=== PATIENT | female | born 1940 | race Caucasian/White ===

== ENCOUNTER 2023-10-12 16:40 | Emergency (ER) | payer MEDICARE, OTHER, SELFPAY ==
[2023-10-12 16:51] VITALS: BP 138/59
[2023-10-12 16:52] LABS: Glucose - Point of Care 113 mg/dl (70-99)
[2023-10-12 17:07] VITALS: BMI 24.7
[2023-10-12 17:25] LABS: % Basophils 0.3 % (0-2); % Immature Granulocytes 0.3 % (0-0.5); % Lymphocytes 46.9 % (20.5-51.1); % Monocytes 7.1 % (1.7-9.3); % Neutrophils 45.4 % (42.2-75.2); Absolute Lymphocytes 5.1 10^3/uL (1.2-3.4); Absolute Monocytes 0.8 10^3/uL (0.1-0.6); Absolute Neutrophils 4.9 10^3/uL (1.4-6.5); Hematocrit 36.2 % (37.0-47.0); Hemoglobin 12.1 g/dL (12.0-16.0); Mean Corp Hgb Conc. 33.4 g/dL (33.0-37.0); Mean Corpuscular Hgb 27.6 pg (27.0-31.0); Mean Corpuscular Volume 82.6 fL (81.0-99.0); Mean Platelet Volume 11.5 fL (7.4-10.4); Nucleated Red Blood Cells % 0.2 %; Platelet Count 221 10^3/uL (130-400); Red Blood Cell Count 4.38 10^6/uL (4.20-5.40); Red Cell Dist. Width 14.6 % (11.5-14.5); White Blood Cell Count 10.8 10^3/uL (4.8-10.8)
[2023-10-12 17:49] LABS: ALT (SGPT) 15 U/L (0-35); AST (SGOT) 28 U/L (14-36); Albumin 4.2 g/dl (3.5-5.0); Alkaline Phosphatase 72 U/L (38-126); Blood Urea Nitrogen 24 mg/dl (7-17); Carbon Dioxide 29 mmol/L (22-30); Chloride 100 mmol/L (98-107); Estimated Creatinine Clearance 56 ml/min; Glucose 142 mg/dl (70-99); Potassium 4.1 mmol/L (3.5-5.1); Sodium 132 mmol/L (135-145); Total Bilirubin 0.3 mg/dl (0.2-1.3); Total Protein 6.9 g/dl (6.3-8.2); eGFR > 60.00
[2023-10-12 18:00] VITALS: BP 142/53
[2023-10-12] MEDS: NSS 500 IV (18:17)
--- NOTE | 2023-10-12 19:14 | ED.GENMED ---
History of Present Illness
General
Chief Complaint: Weakness
Source: patient
Exam Limitations: none
Time Seen by Provider: 10/12/23 17:26
Nursing documentation reviewed up to this point in time: agreed with
Travel History
Have you had any contact with someone who has COVID-19?: No
Do you have any symptoms of coronavirus? Fever > 100 degrees, chills, cough, shortness of breath, sore throat, loss of taste or smell, muscle aches, or headache?: No
History of Present Illness
History of Present Illness:
Patient with recent eyelid lift procedure, to improve her vision, presents to ED secondary to sudden onset of blurred vision along with difficulty ambulating starting this afternoon. Denies headache. Denies loss of sensation or weakness. Denies
difficulty with speech. Denies difficulty with swallowing. Denies previous history of similar symptoms. Patient takes aspirin 81 mg daily. Denies recent illness. Denies recent change in medications or diet.
Past History
Past History
ED Past Medical History: GERD, HTN, Hypercholesterolemia, IDDM, Hypothyroidism and Other
ED Past Surgical History: Cholecystectomy, Gynecological (Partial hysterectomy), Orthopedic (R TKR 11/2016) and Other (strabismus surgery)
Social History
Tobacco: Former smoker
Alcohol: Occasional
Drug: None
Personal:
Living: with family
Employment: Retired
Family History
Family History: Other (Reviewed and non-contributory)
Review of Systems
Review of Systems
Allergies reviewed?: Yes
All Other Systems: ROS reviewed and negative except as documented in HPI and ROS
Constitutional: Reports no symptoms
EENT: Reports no symptoms
Respiratory: Reports no symptoms
Cardiac: Reports no symptoms
ABD/GI: Reports no symptoms
: Reports no symptoms
Musculoskeletal: Reports no symptoms
Skin: Reports no symptoms
Neurological: Reports other (Blurred vision and difficulty walking)
Phy Exam
Physical Exam
Physical Exam:
Physical Exam
General: mild distress, not acutely ill. afebrile
Head: nc/at. eomi
Neck: supple. normal range of motion.
Heart: s1/s2 regular rate and rhythm, no murmur. equal radial pulses.
Lungs: no acute respiratory distress. clear bilaterally
Abdomen: normal bowel sounds. not tender.
Neuro: alert and oriented. no focal neurological deficits. normal speech. unsteady gait noted.
Skin: no rash
Psychiatric: well kept. interactive and cooperative
Extremities: no edema. no calf tenderness.
Course
Orders/Labs/Results
Orders:
Orders
10/12/23 17:17
CMP [Comprehensive Metabolic Panel] Urgent
Complete Blood Count/With Diff Urgent
10/12/23 18:08
CT Head W/o Iv Contrast Urgent
Comment:
Reason For Exam: double vision
0.9% Sodium Chloride 500 ml [Nss] 500 ml IV BOLUS
10/12/23 19:18
Electrocardiogram (*1) Urgent
Reason for Study: TIA/Stroke
EKG- Treatment ONCE
Abnormal Lab Results
10/12/23 10/12/23
16:51 17:17
Hct 36.2 L %
(37.0-47.0)
RDW 14.6 H %
(11.5-14.5)
MPV 11.5 H fL
(7.4-10.4)
Absolute Lymphs (auto) 5.1 H 10^3/uL
(1.2-3.4)
Absolute Monos (auto) 0.8 H 10^3/uL
(0.1-0.6)
Sodium 132 L mmol/L
(135-145)
BUN 24 H mg/dl
(7-17)
Glucose 142 H mg/dl
(70-99)
POC Glucose 113 H mg/dl
(70-99)
10/12/23 17:17
10/12/23 17:17
Vital Signs
Initial and Last Documented VS:
Initial Vital Signs
Temp Pulse Resp BP Pulse Ox
98.1 F 63 20 138/59 100
10/12/23 16:51 10/12/23 16:51 10/12/23 16:51 10/12/23 16:51 10/12/23 16:51
Last Documented Vital Signs
Temp Pulse Resp BP Pulse Ox
98.1 F 67 15 134/51 94
10/12/23 16:51 10/12/23 20:13 10/12/23 20:13 10/12/23 20:13 10/12/23 20:13
MDM/Problems Addressed
MDM/Problems Addressed:
CT head: no acute findings.
Pt reports near resolution of symptoms after iv hydration. In addition, patient is able to ambulate with steady gait afterwards.
History and exam concerning for possible TIA versus dehydration triggering neurological symptoms. Discussed treatment options, including admission for further workup. However, patient feels comfortable going home at this time. Patient will
follow-up with neurology and her anthropology and archeology instructor for further evaluation and treatment. Advised to return to ED with recurrent or worsening symptoms. Patient expresses understanding at time of discharge, to the care of her spouse.
*Critical Care Note
Total Time (30-74mins, 75-104mins- exclusive of procedures): Not Applicable
ED Attending Note
-
Portions of this chart may have been created with voice recognition software.� Occasional wrong word or��sound alike� substitutions may have occurred due to the inherent limitations of voice recognition software.
Discharge Plan
Departure
Patient Disposition: Home (Routine Discharge)
Date of Disposition: 10/12/23
Time of Disposition: 20:05
Patient with high blood pressure during this ER visit?: Yes
Condition: Good
Discharge Problem:
Blurred vision, Dehydration
Instructions: Dehydration, Adult (DC)
Prescriptions:
No Action
insulin aspart U-100 [Novolog U-100 Insulin aspart] 1,000 UNITS/10 ML solution
4 units SC AC
Patient Comments:
patient reports taking Novolog one unit 12/16/16 at 6 AM
cetirizine 10 MG tablet
10 mg PO DAILYPRN PRN (Reason: allergeis) Qty: 0
alum-mag hydroxide-simeth [Mag-Al Plus] 30 ML suspension
30 ml PO Q4HPRN PRN (Reason: INDIGESTION) Qty: 0 0RF
lisinopril 20 MG tablet
20 mg PO DAILY
levothyroxine 88 MCG tablet
88 mcg PO DAILY
famotidine 20 MG tablet
20 mg PO HSPRN PRN (Reason: indegestion)
acetaminophen 325 MG tablet
650 mg PO Q4HPRN PRN (Reason: mild pain/HILL/temp> 100.4F) Qty: 0 0RF
carvedilol 12.5 MG tablet
12.5 mg PO BID
hydralazine 25 MG tablet
25 mg PO BID
aspirin 81 MG tablet,chewable
81 mg PO DAILY
insulin glargine [Lantus Solostar U-100 Insulin] 300 UNITS/3 ML insulin pen
10 units SC DAILY AT 0700
ondansetron 4 mg tablet,disintegrating
4 mg PO TIDPRN PRN (Reason: nausea/vomiting) Qty: 10 0RF
Referrals:
Carlos Rod MD [Active] -
Griselda Chaparro MD [Family Provider] -
Activity Restrictions/Additional Instructions:
As discussed, please follow-up with your primary care physician and/or referred neurologist, as well as anthropology and archeology instructor for further evaluation treatment. Please consider return to ED with recurrent blurred vision or any other neurological symptoms.
Interventions
Interventions:
*General Assessment Last Done: 10/12/23 17:10
*ED COVID-19 Vaccine History Last Done: 10/12/23 17:10
*Nursing Disposition Last Done: 10/12/23 20:18
Discharge Date and Time
Discharge Date/Time: 10/12/23 20:20
[2023-10-12 20:13] VITALS: BP 134/51
== END 2023-10-12 20:20 | disposition home or self-care (01) ==
LOC: EMR 16:40
PROVIDERS: EMERGENCY PHYSICIAN Emergency Medicine; FAMILY PHYSICIAN Family Medicine
DX: H53.8 Other visual disturbances (principal); E86.0 Dehydration; K21.9 Gastro-esophageal reflux disease without esophagitis; I10 Essential (primary) hypertension; E78.00 Pure hypercholesterolemia, unspecified; E11.9 Type 2 diabetes mellitus without complications; E03.9 Hypothyroidism, unspecified; Z79.82 Long term (current) use of aspirin; Z87.891 Personal history of nicotine dependence; Z90.49 Acquired absence of other specified parts of digestive tract
CPT/HCPCS: 99284; 70450; 80053; 82962; 85025

== ENCOUNTER → 2023-11-04 09:47 | Outpatient (REF) | payer MEDICARE, OTHER, SELFPAY | LOC: RAD 09:47 | PROVIDERS: ATTENDING PHYSICIAN Family Medicine | DX: R10.30 Lower abdominal pain, unspecified (principal) | CPT/HCPCS: 74177; Q9967 ==

== ENCOUNTER → 2023-11-30 09:05 | Outpatient (REF) | payer MEDICARE, OTHER, SELFPAY | LOC: RAD 09:05 | PROVIDERS: ATTENDING PHYSICIAN Internal Medicine Rheumatology; FAMILY PHYSICIAN Family Medicine | DX: M81.0 Age-related osteoporosis without current pathological fracture (principal); Z13.820 Encounter for screening for osteoporosis | CPT/HCPCS: 77080 ==

== ENCOUNTER → 2024-04-03 10:56 | Outpatient (REF) | payer MEDICARE, OTHER, SELFPAY | LOC: RAD 10:56 | PROVIDERS: ATTENDING PHYSICIAN Internal Medicine Critical Care Medicine; FAMILY PHYSICIAN Family Medicine | DX: R06.02 Shortness of breath (principal) | CPT/HCPCS: 71046 ==

== ENCOUNTER → 2024-07-12 13:51 | Outpatient (REF) | payer MEDICARE, OTHER, SELFPAY | LOC: RAD 13:51 | PROVIDERS: ATTENDING PHYSICIAN Family Medicine | DX: R05.8 Other specified cough (principal) | CPT/HCPCS: 71046 ==

== ENCOUNTER 2024-11-17 09:30 | Emergency (ER) | payer MEDICARE, OTHER, SELFPAY ==
[2024-11-17 09:37] VITALS: BP 145/51
--- NOTE | 2024-11-17 11:49 | ED.GENMED ---
History of Present Illness
General
Chief Complaint: Fall
Time Seen by Provider: 11/17/24 10:16
History of Present Illness
History of Present Illness:
84-year-old female presents the emergency department for evaluation after a fall 3 days ago, she lost her balance while applying lotion to her legs in the bathroom and fell back landing on her head, right shoulder, and right hip. She has been able
to ambulate since that time. Reporting mild headache and neck pain, right posterior chest wall pain, and right hip/pelvic pain
Past History
Past History
ED Past Medical History: GERD, HTN, Hypercholesterolemia, IDDM, Hypothyroidism and Other
ED Past Surgical History: Cholecystectomy, Gynecological (Partial hysterectomy), Orthopedic (R TKR 11/2016) and Other (strabismus surgery)
Social History
Tobacco: Former smoker
Alcohol: Occasional
Drug: None
Personal:
Living: with family
Employment: Retired
Family History
Family History: Other (Reviewed and non-contributory)
Review of Systems
Review of Systems
Allergies reviewed?: Yes
All Other Systems: ROS reviewed and negative except as documented in HPI and ROS
Phy Exam
Physical Exam
Physical Exam:
GEN: Well appearing, NAD, WDWN
HEENT: Oral mucosa moist, no scleral icterus
Cardiac: Regular rate
Lung: No respiratory distress, no tachypnea.
Chest: Mild tenderness to the right posterior chest wall inferior to the scapula
Abdomen: Soft, grossly nontender
MSK: No gross deformity or injuries, bilateral hip and pelvic range of motion is normal
Skin: Good color, no pallor or jaundice, no rashes
Neuro: AO x3, moves all extremities freely
Psych: Calm, cooperative
Course
Orders/Labs/Results
Orders:
Orders
11/17/24 09:32
CT Cervical Spine W/o Iv Contr Urgent
Comment:
Reason For Exam: fall
CT Head W/o Iv Contrast Urgent
Comment:
Reason For Exam: fall
11/17/24 10:24
CR Chest - 2 Views Urgent
Comment:
Reason For Exam: fall R chest wall injury
CR Hip - RT w/wo Pel 2-3 Vw* Urgent
Comment:
Reason For Exam: fall R hip pain
Include a pelvis x-ray?: Yes
Vital Signs
Initial and Last Documented VS:
Initial Vital Signs
Temp Pulse Resp BP Pulse Ox
98.5 F 65 16 145/51 97
11/17/24 09:37 11/17/24 09:37 11/17/24 09:37 11/17/24 09:37 11/17/24 09:37
Last Documented Vital Signs
Temp Pulse Resp BP Pulse Ox
98.5 F 65 16 145/51 97
11/17/24 09:37 11/17/24 09:37 11/17/24 09:37 11/17/24 09:37 11/17/24 09:37
MDM/Problems Addressed
MDM/Problems Addressed:
Imaging grossly unremarkable, discussed supportive care
*Critical Care Note
Total Time (30-74mins, 75-104mins- exclusive of procedures): Not Applicable
ED Attending Note
-
Portions of this chart may have been created with voice recognition software.� Occasional wrong word or��sound alike� substitutions may have occurred due to the inherent limitations of voice recognition software.
Discharge Plan
Departure
Patient Disposition: Home (Routine Discharge)
Date of Disposition: 11/17/24
Time of Disposition: 11:49
Patient with high blood pressure during this ER visit?: No
Discharge Problem:
Closed head injury, Chest wall contusion
Instructions: Head Injury in Adults (DC)
Prescriptions:
New
tramadol 50 mg tablet
25 - 50 mg PO Q8H PRN (Reason: Pain) Qty: 8 0RF
No Action
insulin aspart U-100 [Novolog U-100 Insulin aspart] 1,000 UNITS/10 ML solution
4 units SC AC
Patient Comments:
patient reports taking Novolog one unit 12/16/16 at 6 AM
cetirizine 10 MG tablet
10 mg PO DAILYPRN PRN (Reason: allergeis) Qty: 0
alum-mag hydroxide-simeth [Mag-Al Plus] 30 ML suspension
30 ml PO Q4HPRN PRN (Reason: INDIGESTION) Qty: 0 0RF
lisinopril 20 MG tablet
20 mg PO DAILY
levothyroxine 88 MCG tablet
88 mcg PO DAILY
famotidine 20 MG tablet
20 mg PO HSPRN PRN (Reason: indegestion)
acetaminophen 325 MG tablet
650 mg PO Q4HPRN PRN (Reason: mild pain/HILL/temp> 100.4F) Qty: 0 0RF
carvedilol 12.5 MG tablet
12.5 mg PO BID
hydralazine 25 MG tablet
25 mg PO BID
aspirin 81 MG tablet,chewable
81 mg PO DAILY
insulin glargine [Lantus Solostar U-100 Insulin] 300 UNITS/3 ML insulin pen
10 units SC DAILY AT 0700
ondansetron 4 mg tablet,disintegrating
4 mg PO TIDPRN PRN (Reason: nausea/vomiting) Qty: 10 0RF
Referrals:
Griselda Chaparro MD [Family Provider] -
Interventions
Interventions:
*Nursing Disposition Last Done: 11/17/24 12:14
ED-Musculoskeletal Assessment Last Done: 11/17/24 11:20
ED- Neurological Assessment Last Done: 11/17/24 11:20
ED-Skin Assessment Last Done: 11/17/24 11:20
Discharge Date and Time
Discharge Date/Time: 11/17/24 12:14
Print Language: ALBANIAN
== END 2024-11-17 12:14 | disposition home or self-care (01) ==
LOC: EMR 09:30
PROVIDERS: EMERGENCY PHYSICIAN Emergency Medicine; FAMILY PHYSICIAN Family Medicine
DX: S09.90XA Unspecified injury of head, initial encounter (principal); S20.219A Contusion of unspecified front wall of thorax, initial encounter; W19.XXXA Unspecified fall, initial encounter; K21.9 Gastro-esophageal reflux disease without esophagitis; I10 Essential (primary) hypertension; E78.00 Pure hypercholesterolemia, unspecified; E11.9 Type 2 diabetes mellitus without complications; E03.9 Hypothyroidism, unspecified; Z87.891 Personal history of nicotine dependence; Z90.49 Acquired absence of other specified parts of digestive tract
CPT/HCPCS: 99284; 70450; 71046; 72125; 73502

== ENCOUNTER → 2025-01-14 12:19 | Outpatient (REF) | payer MEDICARE, OTHER, SELFPAY | LOC: PAVMRI 12:19 | PROVIDERS: ATTENDING PHYSICIAN Pain Medicine Interventional Pain Medicine; FAMILY PHYSICIAN Family Medicine | DX: M54.50 Low back pain, unspecified (principal); M54.12 Radiculopathy, cervical region | CPT/HCPCS: 72141; 72148 ==

== ENCOUNTER → 2025-05-25 15:04 | Outpatient (REF) | payer MEDICARE, OTHER, SELFPAY | LOC: RAD 15:04 | PROVIDERS: ATTENDING PHYSICIAN Internal Medicine Cardiovascular Disease; FAMILY PHYSICIAN Family Medicine | DX: I65.23 Occlusion and stenosis of bilateral carotid arteries (principal) | CPT/HCPCS: 93880 ==

== ENCOUNTER → 2025-05-29 13:38 | Outpatient (REF) | payer MEDICARE, OTHER, SELFPAY | LOC: RCS 13:38 | PROVIDERS: ATTENDING PHYSICIAN Internal Medicine Cardiovascular Disease; FAMILY PHYSICIAN Family Medicine | DX: I65.23 Occlusion and stenosis of bilateral carotid arteries (principal); I34.0 Nonrheumatic mitral (valve) insufficiency | CPT/HCPCS: 93306 ==

== ENCOUNTER 2025-06-30 05:26 | Emergency (ER) | payer MEDICARE, OTHER, SELFPAY ==
[2025-06-30] VITALS (7 sets, daily range): BP systolic 116–158; BP diastolic 46–67; BMI 23.4
--- NOTE | 2025-06-30 06:16 | ED.GENMED ---
History of Present Illness
General
Chief Complaint: Cold/Flu/URI Symptoms
Source: patient and spouse
Exam Limitations: none
Time Seen by Provider: 06/30/25 06:03
Nursing documentation reviewed up to this point in time: agreed with
History of Present Illness
History of Present Illness:
Patient is an 85-year-old female who reports multiple days of nasal congestion and cough. Patient denies fever, nausea, vomiting diarrhea. Patient reports that she woke up early this morning with a coughing spell and afterwards developed a rapid
heart rate that lasted about 1 hour. Patient reports that by the time she got here the palpitations went away completely. Patient denies shortness of breath and chest pain. She reports she has never had palpitations like this before. Denies a
history of a flutter and A-fib. Patient reports she has been eating and drinking well. She denies leg pain and leg swelling.
Past History
Past History
ED Past Medical History: GERD, HTN, Hypercholesterolemia, IDDM, Hypothyroidism and Other
ED Past Surgical History: Cholecystectomy, Gynecological (Partial hysterectomy), Orthopedic (R TKR 11/2016) and Other (strabismus surgery)
Social History
Tobacco: Former smoker
Alcohol: Occasional
Drug: None
Personal:
Living: with family
Employment: Retired
Family History
Family History: Other (Reviewed and non-contributory)
Review of Systems
Review of Systems
Allergies reviewed?: Yes
All Other Systems: ROS reviewed and negative except as documented in HPI and ROS
Constitutional: Reports fatigue
EENT: Reports other (Nasal congestion)
Respiratory: Reports cough
Cardiac: Reports palpitations
ABD/GI: Reports no symptoms
: Reports no symptoms
Musculoskeletal: Reports no symptoms
Skin: Reports no symptoms
Neurological: Reports no symptoms
Endocrine: Reports no symptoms
Hematologic/Lymphatic: Reports no symptoms
Psychiatric: Reports no symptoms
Phy Exam
Physical Exam
Physical Exam:
Physical Exam
General: no apparent distress, not acutely ill. Nontoxic. Conversational. Mild nasal congestion
Neck: supple. no meningeal signs. normal psoterior pharynx
Heart: s1/s2 regular rate and rhythm, no murmur. equal radial pulses.
Lungs: no acute respiratory distress. Speaks in full sentences comfortably. Mild crackles right lung base
Abdomen: normal bowel sounds. not tender. no CVAT
Neuro: alert and oriented. no focal neurological deficits
Skin: no rash
Psychiatric: well kept. interactive and cooperative
Extremities: no edema. no calf tenderness. negative homans. good distal pulses
Course
Orders/Labs/Results
Orders:
Orders
06/30/25
Electrocardiogram (*1) Stat
Reason for Study: Chest Pain
Comment: DONE NO ORDER ENTERED
06/30/25 05:37
Electrocardiogram (*1) Urgent
Reason for Study: Tachycardia
Other Reason for Exam: periiod of tachycardia per pt
06/30/25 05:39
EKG- Treatment ONCE
06/30/25 06:03
COVID-19 Antigen Urgent
Source: Nasal Swab
Influenza A+B Rapid Molecular Urgent
MARIANA Source: Nasal Swab
Specimen Description:
06/30/25 06:16
CR Chest - 2 Views Urgent
Comment:
Reason For Exam: cough
06/30/25 06:[address] Non Medication Order As Directed
Physician Order: accu check please
Above order entered?: Yes
06/30/25 08:30
CT Chest W/o Iv Contrast Urgent
Comment:
Reason For Exam: cough
06/30/25 09:21
0.9% Sodium Chloride 500 ml [Nss] 500 ml IV BOLUS
06/30/25 10:36
Doxycycline [Vibramycin] 100 mg PO NOW STA
06/30/25 11:00
Complete Blood Count/With Diff Urgent
Comprehensive Metabolic Panel Urgent
Troponin I Urgent
Abnormal Lab Results
06/30/25 06/30/25
08:49 11:00
RBC 3.87 L 10^6/uL
(4.20-5.40)
Hgb 10.7 L g/dL
(12.0-16.0)
Hct 32.7 L %
(37.0-47.0)
MCHC 32.7 L g/dL
(33.0-37.0)
MPV 10.7 H fL
(7.4-10.4)
Absolute Neuts (auto) 6.7 H 10^3/uL
(1.4-6.5)
Absolute Monos (auto) 0.8 H 10^3/uL
(0.1-0.6)
Sodium 131 L mmol/L
(135-145)
Creatinine 0.5 L mg/dL
(0.6-1.0)
Glucose 226 H mg/dl
(70-99)
Total Protein 5.9 L g/dl
(6.3-8.2)
POC Glucose 221 H mg/dl
(70-99)
06/30/25 11:00
06/30/25 11:00
Vital Signs
Initial and Last Documented VS:
Initial Vital Signs
Temp Pulse Resp BP Pulse Ox
98.3 F 87 20 116/67 95
06/30/25 05:29 06/30/25 05:29 06/30/25 05:29 06/30/25 05:29 06/30/25 05:29
Last Documented Vital Signs
Temp Pulse Resp BP Pulse Ox
98.5 F 82 15 146/46 94
06/30/25 07:15 06/30/25 10:00 06/30/25 10:00 06/30/25 10:00 06/30/25 10:00
MDM/Problems Addressed
Differential Diagnosis Includes:
Sinus tachycardia now resolved, atrial fibrillation now resolved, pneumonia
MDM/Problems Addressed:
Patient presents with acute palpitations that are now resolved
Chronic conditions affecting care: DM
*Radiology
Radiology exam reviewed: preliminary read by ED provider (Chest x-ray read by me. Right upper lobe opacity) and radiology read reviewed
*Pulse Oximetry
SaO2: 95
Oxygen Mode of Delivery: Room air
Patient hypoxic: no
*EKG
Interpreted by ED Provider?: Yes
Interpretation: abnormal
Comparison EKG: changes noted (Prior EKG showed a normal axis)
Rate: normal
Rhythm: sinus
[place]: left axis deviation
Interval: normal interval
QRS Pattern: normal QRS
Ischemia: non-specific ST changes
*Knobber Interpretation
Rate: normal
Interpretation: normal
Rhythm: sinus
*Critical Care Note
Total Time (30-74mins, 75-104mins- exclusive of procedures): Not Applicable
Data Reviewed
Review of Other/Old Records Reveals: Testing (Cardiac echo reviewed from 05/2025. Showed normal systolic function)
Source: patient and spouse
Update Note
Update Note:
Second EKG done. Shows a normal sinus rhythm with left axis deviation with narrow QRS complex which is unchanged from EKG done earlier this morning.
Patient walked for hours in the ED. x ray inspector shows sinus rhythm without any signs of sinus tachycardia, A-fib or a flutter. I suspect patient did have a tachycardia prior to arrival, given the symptoms she described. Given that patient has
been chest pain-free, I feel she can safely go home and follow-up with cardiology as an outpatient.
Additionally, given patient is coughing up large amounts of mucus, decision made to start antibiotics, especially given that there is an opacity on the right side of patient's lung. Patient also told that she should have a repeat CAT scan in 3
months and sent home with a copy of her CT report to show her primary care doctor
ED Attending Note
-
Portions of this chart may have been created with voice recognition software.� Occasional wrong word or��sound alike� substitutions may have occurred due to the inherent limitations of voice recognition software.
Discharge Plan
Departure
Patient Disposition: Home (Routine Discharge)
Date of Disposition: 06/30/25
Time of Disposition: 11:55
Patient with high blood pressure during this ER visit?: No
Condition: Good
Covid-19: Not Applicable
Discharge Problem:
Palpitations, Bronchiolitis
Instructions: Cough in adults - ED (DC), Palpitations - ED (DC), Chest Pain DCA Follow Up
Prescriptions:
New
doxycycline hyclate 100 mg capsule
100 mg PO BID Qty: 13 0RF
benzonatate 200 mg capsule
200 mg PO BID PRN (Reason: Cough) Qty: 10 0RF
No Action
insulin aspart U-100 [Novolog U-100 Insulin aspart] 1,000 UNITS/10 ML solution
4 units SC AC
Patient Comments:
patient reports taking Novolog one unit 12/16/16 at 6 AM
cetirizine 10 MG tablet
10 mg PO DAILYPRN PRN (Reason: allergeis) Qty: 0
alum-mag hydroxide-simeth [Mag-Al Plus] 30 ML suspension
30 ml PO Q4HPRN PRN (Reason: INDIGESTION) Qty: 0 0RF
lisinopril 20 MG tablet
20 mg PO DAILY
levothyroxine 88 MCG tablet
88 mcg PO DAILY
famotidine 20 MG tablet
20 mg PO HSPRN PRN (Reason: indegestion)
acetaminophen 325 MG tablet
650 mg PO Q4HPRN PRN (Reason: mild pain/HILL/temp> 100.4F) Qty: 0 0RF
carvedilol 12.5 MG tablet
12.5 mg PO BID
hydralazine 25 MG tablet
25 mg PO BID
aspirin 81 MG tablet,chewable
81 mg PO DAILY
insulin glargine [Lantus Solostar U-100 Insulin] 300 UNITS/3 ML insulin pen
10 units SC DAILY AT 0700
ondansetron 4 mg tablet,disintegrating
4 mg PO TIDPRN PRN (Reason: nausea/vomiting) Qty: 10 0RF
tramadol 50 mg tablet
25 - 50 mg PO Q8H PRN (Reason: Pain) Qty: 8 0RF
Referrals:
UNKNOWN - PT NOT,INTERVIEWE [Family Provider]
Activity Restrictions/Additional Instructions:
Please follow-up with your primary care doctor within 2 weeks to show your doctor the results of your chest CAT scan. The radiologist would like you to get a repeat CAT scan in of your chest in 3 months. It is also important that you follow-up
with your christian counselor within 1 week. Please return with any increased work of breathing, persistent palpitations or chest pain.
Interventions
Interventions:
*Risk Screen - Suicide Last Done: 06/30/25 05:29
*General Assessment Last Done: 06/30/25 06:19
*Neglect/Abuse Screening Last Done: 06/30/25 05:29
*ED COVID-19 Vaccine History Last Done: 06/30/25 05:29
*ED Influenza Vaccine History Last Done: 06/30/25 05:29
[facility] Fall Risk Assessment Tool Last Done: 06/30/25 05:26
ED- Pulmonary Assessment Last Done: 06/30/25 06:19
Discharge Date and Time
Print Language: DIVEHI
[2025-06-30 06:31] LABS: COVID-19 Antigen Negative (Negative)
[2025-06-30 08:51] LABS: Glucose - Point of Care 221 mg/dl (70-99)
[2025-06-30] MEDS: NSS 500 IV (09:43)
[2025-06-30 11:12] LABS: Hematocrit 32.7 % (37.0-47.0); Hemoglobin 10.7 g/dL (12.0-16.0); Mean Corp Hgb Conc. 32.7 g/dL (33.0-37.0); Mean Corpuscular Volume 84.5 fL (81.0-99.0); Nucleated Red Blood Cells % 0 %; Platelet Count 197 10^3/uL (130-400); Red Cell Dist. Width 13.2 % (11.5-14.5)
[2025-06-30 11:38] LABS: Troponin I 0.017 ng/ml
[2025-06-30 11:43] LABS: ALT (SGPT) 13 U/L (0-35); AST (SGOT) 21 U/L (14-36); Albumin 3.6 g/dl (3.5-5.0); Alkaline Phosphatase 92 U/L (38-126); Blood Urea Nitrogen 10 mg/dl (7-17); Calcium 8.9 mg/dl (8.4-10.2); Carbon Dioxide 29 mmol/L (22-30); Chloride 98 mmol/L (98-107); Estimated Creatinine Clearance 54 ml/min; Glucose 226 mg/dl (70-99); Potassium 4.5 mmol/L (3.5-5.1); Sodium 131 mmol/L (135-145); Total Protein 5.9 g/dl (6.3-8.2); eGFR > 60.00
[2025-06-30] MEDS: VIBRAMYCIN 100 MG PO (12:14)
== END 2025-06-30 12:15 | disposition home or self-care (01) ==
LOC: EMR 05:26
PROVIDERS: Emergency Medicine; EMERGENCY PHYSICIAN Emergency Medicine
DX: R00.2 Palpitations (principal); J21.9 Acute bronchiolitis, unspecified; E10.9 Type 1 diabetes mellitus without complications; I10 Essential (primary) hypertension; E78.00 Pure hypercholesterolemia, unspecified; E03.9 Hypothyroidism, unspecified; K21.9 Gastro-esophageal reflux disease without esophagitis; Z79.4 Long term (current) use of insulin; Z79.82 Long term (current) use of aspirin; Z87.891 Personal history of nicotine dependence; Z96.651 Presence of right artificial knee joint
CPT/HCPCS: 99284; 96360; 96361; 71046; 71250; 80053; 82962; 84484; 85025; 87502; 87811; 93005

== ENCOUNTER → 2025-07-22 12:21 | Outpatient (REF) | payer MEDICARE, OTHER, SELFPAY | LOC: MRI 3T 12:21 | PROVIDERS: ATTENDING PHYSICIAN Nurse Practitioner; FAMILY PHYSICIAN Family Medicine | DX: R41.3 Other amnesia (principal) | CPT/HCPCS: 70551 ==